=== PATIENT | female | born 1940 | race Caucasian/White ===

== ENCOUNTER 2018-02-03 12:38 | Emergency (ER) | payer OTHER ==
[2018-02-03 13:09] VITALS: BP 141/64
--- NOTE | 2018-02-03 13:28 | UC ---
Skin Complaint HPI - HPI Summary HPI Summary: 78 y/o female presents to the urgent care c/o c/o erythema, swelling, and pain to left middle finger x 1 week. - History of Current Complaint Chief Complaint: UCUpperExtremity Time Seen by Provider: 02/03/18 13:25 Stated Complaint: LT HAND/MIDDLE FINGER INFECTION Hx Obtained From: Patient Pain Intensity: 10 - Allergy/Home Medications Allergies/Adverse Reactions: Allergies Allergy/AdvReac Type Severity Reaction Status Date / Time aspirin Allergy Unknown Verified 02/03/18 13:05 Reaction Details Iodinated Contrast- Oral and Allergy Unknown Verified 02/03/18 13:05 IV Dye Reaction Details Home Medications: Home Medications Canagliflozin (NF) [Invokana (NF)] 100 mg PO DAILY 02/03/18 [History Confirmed 02/03/18] Insulin GLARGINE(*) [Lantus(*)] 54 units SUBCUT Q24H 02/03/18 [History Confirmed 02/03/18] Metoprolol Tartrate TAB* [Lopressor TAB*] 50 mg PO BID 02/03/18 [History Confirmed 02/03/18] Pramipexole TAB* [Mirapex TAB*] 0.5 mg PO BEDTIME 02/03/18 [History Confirmed ] metFORMIN* [Glucophage 1000 MG TAB *] 1,000 mg PO BID 02/03/18 [History Confirmed 02/03/18] PMH/Surg Hx/FS Hx/Imm Hx Previously Healthy: Yes Endocrine History: Diabetes Cardiovascular History: Hypertension Other Psychological History: Parkinsons - Surgical History Surgical History: Yes Surgery Procedure, Year, and Place: hernia repair - Social History Alcohol Use: None Substance Use Type: None Smoking Status (MU): Never Smoked Tobacco Physical Exam Vital Signs: Initial Vital Signs Temp 97.9 F 02/03/18 13:01 Pulse 80 02/03/18 13:01 Resp 16 02/03/18 13:01 BP 141/64 02/03/18 13:01 Pulse Ox 96 02/03/18 13:01 Course/Dx - Differential Diagnoses - Skin Complaint Differential Diagnoses: Abscess, Cellulitis, MRSA, Tinea, Other - paronychia - Diagnoses Provider Diagnoses: 1- Incision and drainage of left middle finger paronychia. 2- Uncontrolled HTN Discharge - Sign-Out/Discharge Documenting (check all that apply): Patient Departure - D/C home All imaging exams completed and their final reports reviewed: No Studies - Discharge Plan Condition: Stable Disposition: HOME Prescriptions: Bacitracin OINTMENT* 1 applic TOPICAL BID #1 tube Calcium Acetate/Aluminum Sulf [[place] Packet] 1 each TP BID #1 powd.pack Cephalexin CAP* [Keflex CAP*] 500 mg PO QID #28 cap Patient Education Materials: Paronychia (ED), Low-Sodium Diet (ED) Referrals: Nikko Chua MD [Primary Care Provider] - 3 Days Additional Instructions: 1-Please take full course of antibiotic to avoid resistance. Keep wound clean and dry with a sterile dressing. Apply bacitracin topical as directed 2- Soak your finger w/ [place] packets as directed to alleviate symptoms 3-. Take Ibuprofen PO q6-8hrs prn for pain or swelling. 4-If you develop fever or redness despite antibiotic please go to the ER immediately or return to the Urgent care. 5- Wound culture sent to lab, if any abnormal result you will receive a call from us. 6-Your BP is elevated today. please decrease salt in your diet, monitor BP and if it continues to be elevated please f/u with your PCP for further management - Billing Disposition and Condition Condition: STABLE Disposition: Home
[2018-02-03] MEDS ORDERED: Lidocaine 1%* 5 ML VIAL INJ ONE (13:43)
== END 2018-02-03 15:00 | disposition home or self-care (01) ==
LOC: UCCORT 12:38
DX: L03.012 Cellulitis of left finger (principal); B95.61 Methicillin susceptible Staphylococcus aureus infection as the cause of diseases classified elsewhere; I10 Essential (primary) hypertension; Z88.4 Allergy status to anesthetic agent; Z91.041 Radiographic dye allergy status; E11.9 Type 2 diabetes mellitus without complications; Z79.4 Long term (current) use of insulin; Z79.84 Long term (current) use of oral hypoglycemic drugs; G20 Parkinson's disease
CPT/HCPCS: 10060; 87070; 87077; 87186; 87205; 87640; 87641; 99212; G0463

== ENCOUNTER 2018-06-30 16:53 | Emergency (ER) | payer MEDICARE, OTHER ==
[2018-06-30 17:31] VITALS: BP 116/62
--- NOTE | 2018-06-30 17:40 | UC ---
General HPI - HPI Summary HPI Summary: PT IS C/O A CONGESTED COUGH AND BOUTS OF LARYNGITIS X 2 WEEKS. DENIES CP, SOB, WHEEZING AND FEVER. DENIES SORE THROAT AND DIFFICULTY WITH SWALLOW. STATED TOLD SHE HAS COPD. SHE HAS A RESCUE INHALER THAT SHE HAS NOT TRIED. - History of Current Complaint Chief Complaint: UCRespiratory Stated Complaint: LARYNGITIS/COUGH Time Seen by Provider: 06/30/18 17:18 Pain Intensity: 0 - Allergy/Home Medications Allergies/Adverse Reactions: Allergies Allergy/AdvReac Type Severity Reaction Status Date / Time aspirin Allergy Unknown Verified 06/30/18 17:12 Reaction Details Iodinated Contrast- Oral and Allergy Unknown Verified 06/30/18 17:12 IV Dye Reaction Details naproxen Allergy Unknown Verified 06/30/18 17:15 Reaction Details ibuprofen Allergy vision Uncoded 06/30/18 17:15 changes prescribed pain med AdvReac altered Uncoded 06/30/18 17:15 thinking Home Medications: Home Medications Acetaminophen [Tylenol Extra Strength] 1,000 mg PO DAILY PRN 06/30/18 [History Confirmed 06/30/18] PMH/Surg Hx/FS Hx/Imm Hx Endocrine History: Diabetes Cardiovascular History: Hypertension Respiratory History: COPD - Surgical History Surgical History: Yes Surgery Procedure, Year, and Place: abdominal hernia repair; bladder repair - Family History Known Family History: Positive: Hypertension, Diabetes - Social History Alcohol Use: None Substance Use Type: None Smoking Status (MU): Former Smoker Review of Systems All Other Systems Reviewed And Are Negative: Yes Constitutional: Negative: Fever Respiratory: Positive: Cough. Negative: Shortness Of Breath Cardiovascular: Negative: Palpitations, Chest Pain Physical Exam Triage Information Reviewed: Yes Appearance: Well-Appearing Vital Signs: Initial Vital Signs Temp 99.1 F 06/30/18 17:21 Pulse 62 06/30/18 17:21 Resp 22 06/30/18 17:21 BP 116/62 06/30/18 17:21 Pulse Ox 97 06/30/18 17:21 Vital Signs Reviewed: Yes Eyes: Positive: Conjunctiva Clear ENT: Positive: Pharynx normal, TMs normal, Hoarse voice, Uvula midline, Other - SPEECH IS FLUANT AND SWALLOWS WITH NO DIFFICULTY.. Negative: Nasal congestion, Nasal drainage, Trismus, Muffled voice Neck: Positive: Supple, Nontender, No Lymphadenopathy Respiratory: Positive: No respiratory distress, Decreased breath sounds, Other: - cOUGH IS CONGESTED.. Negative: Crackles, Rhonchi, Stridor, Wheezing Cardiovascular: Positive: RRR, No Murmur Abdomen Description: Positive: Nontender, No Organomegaly, Soft Bowel Sounds: Positive: Present Musculoskeletal: Positive: ROM Intact Neurological: Positive: Alert Psychological: Positive: Age Appropriate Behavior Skin Exam: Normal Course/Dx - Course Course Of Treatment: given prior hx of smoking and 2 week hx cough, cxr advised;however, pt declined. albuterol neb tx suggested as well which pt also declined citing she has an inhaler and access to her sons nebulizer. since hx copd, will cover for a presumptive bacterial infection and start a moderate steroid x 3 days. pt advised BS will risw with the steroid. pt also advised of need for close f/u to ensure resolution of symptoms which she agrees to. she was also advised of risk for pathology such as pneumonia, lesions and CA from her smoking and copd. - Diagnoses Provider Diagnosis: Cough, Laryngitis Discharge - Sign-Out/Discharge Documenting (check all that apply): Patient Departure All imaging exams completed and their final reports reviewed: No Studies - Discharge Plan Condition: Stable Disposition: HOME Prescriptions: DOXYcycline CAP(*) [DOXYcycline 100MG CAP(*)] 100 mg PO BID 10 Days #20 cap predniSONE [Prednisone 20 MG TAB] 40 mg PO DAILY 3 Days #6 tablet Patient Education Materials: Laryngitis (ED), Acute Cough (ED) Referrals: Nikko Chua MD [Primary Care Provider] - 7 Days Additional Instructions: USE YOUR RESCUE INHALER 2 PUFFS EVERY 6 HOURS - Billing Disposition and Condition Condition: STABLE Disposition: Home
== END 2018-06-30 17:48 | disposition home or self-care (01) ==
LOC: UCCORT 16:53
DX: J04.0 Acute laryngitis (principal); R05 Cough; E11.9 Type 2 diabetes mellitus without complications; I10 Essential (primary) hypertension; J44.9 Chronic obstructive pulmonary disease, unspecified; Z88.6 Allergy status to analgesic agent; Z88.8 Allergy status to other drugs, medicaments and biological substances; Z91.041 Radiographic dye allergy status; Z87.891 Personal history of nicotine dependence
CPT/HCPCS: 99212; G0463

== ENCOUNTER 2018-10-01 07:58 | Emergency (ER) | payer MEDICARE ==
[2018-10-01 08:16] VITALS: BP 129/54
--- NOTE | 2018-10-01 08:37 | UC ---
Lower Extremity/Ankle HPI - HPI Summary HPI Summary: Patient is a 78 year old female, who present today to the urgent care with right medial ankle pain that she noticed last night. There is associated redness. Does not recall any bug bite She is not able to put weight on the right lower extremity. There is no pain in the foot itself and all her pain is localized to medial ankle. Denies any other symptoms. She does have a history of gout in the past. Denies any fevers, chills, cough chest pain or shortness of breath. - History of Current Complaint Chief Complaint: UCLowerExtremity Stated Complaint: RT FOOT COMPLAINT Time Seen by Provider: 10/01/18 08:12 ?: No Pain Intensity: 8 - Allergies/Home Medications Allergies/Adverse Reactions: Allergies Allergy/AdvReac Type Severity Reaction Status Date / Time aspirin Allergy Unknown Verified 10/01/18 08:17 Reaction Details Iodinated Contrast- Oral and Allergy Unknown Verified 10/01/18 08:17 IV Dye Reaction Details naproxen Allergy Unknown Verified 10/01/18 08:17 Reaction Details ibuprofen Allergy vision Uncoded 10/01/18 08:17 changes prescribed pain med AdvReac altered Uncoded 10/01/18 08:17 thinking PMH/Surg Hx/FS Hx/Imm Hx - Additional Past Medical History Additional PMH: Past Medical History : COPD, diabetes mellitus type 2, altered gait Past Surgical History: Bladder and hernia surgery Family History : Noncontributory Social History : No alcohol, former smoker, no drug use. Retired Previously Healthy: Yes - Surgical History Surgical History: Yes Surgery Procedure, Year, and Place: abdominal hernia repair; bladder repair - Family History Known Family History: Positive: Hypertension, Diabetes - Social History Alcohol Use: None Substance Use Type: None Smoking Status (MU): Former Smoker When Did the Patient Quit Smoking/Using Tobacco: 2004 Review of Systems All Other Systems Reviewed And Are Negative: Yes Constitutional: Positive: Negative Skin: Positive: Other - redness in the ankle area Eyes: Positive: Negative ENT: Positive: Negative Respiratory: Positive: Negative Cardiovascular: Positive: Negative Gastrointestinal: Positive: Negative Genitourinary: Positive: Negative Motor: Positive: Negative Neurovascular: Positive: Negative Musculoskeletal: Positive: Arthralgia - Right ankle, Decreased ROM - right ankle, painful, Other: - Redness Neurological: Positive: Negative Psychological: Positive: Negative Is Patient Immunocompromised?: No Physical Exam - Summary Physical Exam Summary: Vital Signs Reviewed: Yes A+Ox3, no distress Eyes: Conjunctiva Clear ENT: Hearing grossly normal neck: supple Respiratory: Positive: No respiratory distress, No accessory muscle use Cardiovascular: skin color reflect adequate perfusion right Neurological: Positive: Alert, ambulatory without difficulty Psychological: Positive: Normal Response To Family Skin: Positive: no rash, no ecchymosis Right Ankle/Feet examination: Ankle: Gait: Painful weightbearing on the right side Inspection/palpation: there is erythema with some swelling and tenderness to palpation on the medial aspect of the ankle Ankle mortise appears intact. ROM: painful Strength: 5/5 with dorsiflexion, plantarflexion, inversion and eversion Special tests: Deferred Feet: Insp/Palp: No tenderness to palpation is noted the feet 2+ posterior tibial and dorsalis pedis pulse bilaterally. Neuro: Sensation to light touch is intact in the lower extremities bilaterally. Coordination normal. Triage Information Reviewed: Yes Vital Signs: Initial Vital Signs Temp 97.1 F 10/01/18 08:08 Pulse 69 10/01/18 08:08 Resp 16 10/01/18 08:08 BP 129/54 10/01/18 08:08 Pulse Ox 98 10/01/18 08:08 Vital Signs Reviewed: Yes Diagnostics - Radiology No standard instances Radiology Interpretation Completed By: Radiologist - Right ankle x-rays:NO ACUTE OSSEOUS INJURY. IF SYMPTOMS PERSIST, RECOMMEND REPEAT IMAGING. Lower Extremity Course/Dx - Course Course Of Treatment: During the visit today, we obtained x-rays of the right ankle:NO ACUTE OSSEOUS INJURY. IF SYMPTOMS PERSIST, RECOMMEND REPEAT IMAGING. We discussed the findings which are and possibly cellulitis, possibility of gout cannot be completely ruled out given the amount of pain and her inability to be her weight . I will prescribe the medication to the pharmacy . Patient expressed understanding . - Differential Dx/Diagnosis Provider Diagnosis: Cellulitis, Gout Discharge - Sign-Out/Discharge Documenting (check all that apply): Patient Departure All imaging exams completed and their final reports reviewed: Yes - Discharge Plan Condition: Stable Disposition: HOME Prescriptions: predniSONE [Prednisone 20 MG TAB] 60 mg PO DAILY 5 Days #15 tablet Sulfamethox/Trimethoprim DS* [Bactrim DS 800/160 TAB*] 1 tab PO BID 10 Days #20 tab Patient Education Materials: Cellulitis (DC), Gout (ED) Referrals: Tyron Shi MD [Medical Doctor] - 3 Days Nikko Chua MD [Primary Care Provider] - 3 Days Flako De La Paz MD [Medical Doctor] - 2 Days Additional Instructions: Please start taking the medication as prescribed to the pharmacy . Follow up with your primary care doctor in 3 days. Also consult orthopedics if no better in 3 days Patients blood pressure slightly high in Urgent care today , plan follow up with PCP for better control Return to Urgent care / ER if symptoms get worse. - Billing Disposition and Condition Condition: STABLE Disposition: Home
== END 2018-10-01 09:20 | disposition home or self-care (01) ==
LOC: UCCORT 07:58
DX: L03.115 Cellulitis of right lower limb (principal); M10.9 Gout, unspecified; Z88.6 Allergy status to analgesic agent; E11.9 Type 2 diabetes mellitus without complications; Z87.891 Personal history of nicotine dependence; R26.9 Unspecified abnormalities of gait and mobility
CPT/HCPCS: 99212; G0463

== ENCOUNTER 2019-02-15 07:08 | Emergency (ER) | payer MEDICARE ==
--- NOTE | 2019-02-15 07:53 | UC ---
Complaint Female HPI - HPI Summary HPI Summary: 79-year-old woman comes in with a chief complaint of urinary frequency, dysuria , urgency since last night since last night. The fevers no chills no suprapubic pain no flank pain feels well otherwise. Patient has had urinary tract infections in the past and she believes this is a urinary tract infection. Patient does have diabetes and she's recently changed her diabetic medications which she believes may have contributed to the UTI. - History Of Current Complaint Chief Complaint: UCGU Stated Complaint: UTI Time Seen by Provider: 02/15/19 07:13 Pain Intensity: 0 - Allergies/Home Medications Allergies/Adverse Reactions: Allergies Allergy/AdvReac Type Severity Reaction Status Date / Time aspirin Allergy Unknown Verified 02/15/19 07:25 Reaction Details Iodinated Contrast Media Allergy Unknown Verified 02/15/19 07:25 [Iodinated Contrast- Oral Reaction and IV Dye] Details naproxen Allergy Unknown Verified 02/15/19 07:25 Reaction Details ibuprofen Allergy vision Uncoded 02/15/19 07:25 changes prescribed pain med AdvReac altered Uncoded 02/15/19 07:25 thinking Home Medications: Home Medications Liraglutide [Victoza] 18 mg SC 02/15/19 [History] PMH/Surg Hx/FS Hx/Imm Hx Previously Healthy: Yes Endocrine History: Diabetes Cardiovascular History: Hypertension - Surgical History Surgical History: Yes Surgery Procedure, Year, and Place: abdominal hernia repair; bladder repair - Family History Known Family History: Positive: Hypertension, Diabetes - Social History Alcohol Use: None Substance Use Type: None Smoking Status (MU): Former Smoker When Did the Patient Quit Smoking/Using Tobacco: 2004 Review of Systems All Other Systems Reviewed And Are Negative: Yes Constitutional: Positive: Negative Skin: Positive: Negative Eyes: Positive: Negative ENT: Positive: Negative Respiratory: Positive: Negative Cardiovascular: Positive: Negative Gastrointestinal: Positive: Negative Genitourinary: Positive: Dysuria, Frequency, Urgency Motor: Positive: Negative Neurovascular: Positive: Negative Musculoskeletal: Positive: Negative Neurological: Positive: Negative Psychological: Positive: Negative Is Patient Immunocompromised?: No Physical Exam Triage Information Reviewed: Yes Appearance: Well-Appearing, No Pain Distress, Well-Nourished Vital Signs: Initial Vital Signs Temp 98.6 F 02/15/19 07:17 Pulse 75 02/15/19 07:17 Resp 18 02/15/19 07:17 BP 128/53 02/15/19 07:17 Pulse Ox 94 02/15/19 07:17 Vital Signs Reviewed: Yes Eye Exam: Normal Eyes: Positive: Conjunctiva Clear Neck: Positive: Supple Respiratory: Positive: Lungs clear, Normal breath sounds, No respiratory distress Cardiovascular: Positive: RRR Abdomen Description: Positive: Nontender. Negative: CVA Tenderness (R), CVA Tenderness (L) Musculoskeletal: Positive: Strength Intact, ROM Intact Neurological: Positive: Alert Psychological: Positive: Age Appropriate Behavior Skin Exam: Normal Complaint Female Dx - Course Course Of Treatment: Prior UTIs in 2017 were susceptible to Macrobid and insensitive to other antibiotics therefore I chose Macrobid 100 mg by mouth twice a day for 7 days. Patient to follow-up with a primary care doctor get reevaluated sooner if worse or any questions or concerns. - Differential Dx/Diagnosis Provider Diagnosis: UTI (urinary tract infection) Discharge ED - Sign-Out/Discharge Documenting (check all that apply): Patient Departure All imaging exams completed and their final reports reviewed: No Studies - Discharge Plan Condition: Stable Disposition: HOME Prescriptions: Nitrofurantoin Monohyd/M-Cryst [Macrobid 100 mg Capsule] 100 mg PO BID #14 cap Patient Education Materials: Urinary Tract Infection in Women (ED) Referrals: Nikko Chua MD [Primary Care Provider] - Additional Instructions: FOLLOW UP WITH YOUR DOCTOR IF NOT COMPLETELY IMPROVED. GET REEVALUATED SOONER IF NOT IMPROVING OR YOUR CONDITION WORSENS OR ANY QUESTIONS OR CONCERNS. - Billing Disposition and Condition Condition: STABLE Disposition: Home
[2019-02-15 08:49] VITALS: BP 128/53
== END 2019-02-15 07:59 | disposition home or self-care (01) ==
LOC: UCCORT 07:08
DX: N39.0 Urinary tract infection, site not specified (principal); E11.9 Type 2 diabetes mellitus without complications; I10 Essential (primary) hypertension; Z88.6 Allergy status to analgesic agent; Z88.8 Allergy status to other drugs, medicaments and biological substances; Z91.041 Radiographic dye allergy status; Z79.84 Long term (current) use of oral hypoglycemic drugs
CPT/HCPCS: 81003; 87077; 87086; 87186; 99212; G0463